=== PATIENT | male | born 1990 | race Caucasian/White ===

== ENCOUNTER → 2021-10-08 11:31 | Outpatient (CLI) | payer BC, SELFPAY ==
--- NOTE | ~2021-10-08 | XR_ITS ---
XR hand RT min 3V 10/08/2021 11:44 INDICATION: Right hand pain PROCEDURE: 3 views right hand COMPARISON: No prior studies for comparison. FINDINGS: Fracture, dislocation or subluxation is not identified. The soft tissues appear within norm al limits. No foreign bodies are identified. IMPRESSION: 1: NO ACUTE BONE OR JOINT ABNORMALITY IDENTIFIED. Reviewed, dictated and finalized at location [facility]
== END ==
PROVIDERS: PCP Family Medicine; Visit Provider Family Medicine
DX: M79.641 Pain in right hand (principal)
CPT/HCPCS: 73130

== ENCOUNTER 2023-03-25 08:15 | Outpatient (CLI) | payer BC, SELFPAY ==
--- NOTE | 2023-03-31 12:28 | WPDHOMESLEEP ---
Sleep Study - Home Unattended Date of Study: 03/25/23 Ordering Provider: Lorne Graves MD Interpreting Provider: Trisha Ribera MD Home Sleep Study Type: Watch PAT Height: 1.83 m Weight: 104.326 kg Body Mass Index: 31.1 Neck Circumference (inches): 16 [place]: 6 Reason for Sleep Study Loud snoring Sleep History Paulino Escalona is a 32-year-old man who has a long history of loud snoring. He has tried different beds, body positions, he has used Claritin,. He rarely awakens from sleep feeling short of breath. He frequently wakes at night with coughing. He constantly snores and frequently this is loud enough that others complain about it. He does not have difficulty sleeping with a cold. He does not wake up gasping for breath at night. He does not have breathing problems at night reported to him by others. He does not sweat excessively at night or notice his heart pounding or beating irregularly at night. He rarely falls asleep during the day, does not fall asleep involuntarily or while driving. He does not have loss of muscle tone with strong emotion. He does not have daytime difficulties due to excessive sleepiness. He works for [employer]. He does not feel paralyzed on waking or falling asleep. He does not have vivid dreamlike scenes on waking or falling asleep. He does not feel afraid to go to sleep. He rarely has nightmares. Does not remember his dreams. He constantly has racing thoughts. He does not feel sad or depressed. He frequently has anxiety. He does not have muscular tension. His frequently notices that he kicks at night. He does not have crawling or aching feelings in his legs. He does not have leg pain during the night. He does not have morning jaw pain. He does not grind his teeth during sleep. He occasionally is bothered by pain during the day. He is not awakened by pain at night. He does not wake up feeling stiff in the morning with sore achy muscles. He constantly wakes up with pain in the neck and spine. He has memory problems and concentration difficulties that are attributed to ADHD. He takes antacids at times. Normal bedtime is 8:30 p.m. falling asleep within 10-30 minutes waking 1-2 times to go to the bathroom. He is able to return to sleep in a few minutes. He wakes at 4:00 a.m.. His weekend schedule is similar, 8:30 p.m. bedtime and 5:00 a.m. wake up. He sometimes takes naps but if he does these are a short nap. He may feel refreshed after a 20 minute nap. He feels better in the morning compared to other times of day. Habits: Quit tobacco within the last year, smokes on occasion. Caffeine: 1 serving per day. Alcohol: 2 servings a day. No recreational substances. [facility] Past Medical History Medical History Abnormal fasting glucose (10/08/21) Glucose elevated at 104 on 10/08/2021. Glucose 110 with hemoglobin A1c 5.6 on 09/17/2022. glucose 108 with hemoglobin A1c 5.7 on 12/23/2022. Acute bronchitis Acute non-recurrent maxillary sinusitis ADHD (attention deficit hyperactivity disorder), inattentive type Arthritis rheumatoid factor less than 14, JOHN negative, uric acid 6.4 on 10/08/2021. BMI 29.0-29.9,adult BMI 30.0-30.9,adult BMI 31.0-31.9,adult Chronically elevated hemidiaphragm Elevated blood pressure reading in office without diagnosis of hypertension Essential (primary) hypertension Exposure to COVID-19 virus Hypersomnia Obesity (BMI 30.0-34.9) Overweight (BMI 25.0-29.9) Pain in right hand Family History Family History Grandparent Diabetes mellitus, Onset Age: 80 Family history of lung cancer Mother Patient's mother is in good health Family history unknown Father Patient's father is in good health Social History Social History (Updated 10/14/22 @ 08:11 by Marii Cobian MA) Smoking status: Never smoker Second hand tobacco smoke
[2023-03-31 12:37] VITALS: BMI 31.1
--- NOTE | 2023-11-12 10:13 | SLEEP ---
new calls [id number]
== END 2023-03-28 12:28 | disposition home or self-care (01) ==
PROVIDERS: PCP Family Medicine; Visit Provider Family Medicine
DX: G47.33 Obstructive sleep apnea (adult) (pediatric) (principal)
CPT/HCPCS: 95800

== ENCOUNTER 2023-04-28 20:00 | Outpatient (CLI) | payer BC, SELFPAY ==
--- NOTE | 2023-05-26 09:13 | WPDSLEEPSTUD ---
Sleep Study Date of Study: 04/21/23 Ordering Provider: Lorne Graves MD Interpreting Physician: Trihsa Ribera MD Sleep Study Type: CPAP Titration Height: 1.83 m Weight: 104.326 kg Body Mass Index: 31.1 Neck Circumference (inches): 16.5 [place]: 6 Reason for Sleep Study * Home sleep test using WatchPat March 25, 2023 showing moderate obstructive sleep apnea, AHI 22.4 with desaturation to 77% and snoring; 20.6 minutes below 88%, 6.7% the study.? Returns no for CPAP titration. Sleep History Paulino Escalona is a 32-year-old man who has a long history of loud snoring.? He has tried different beds, body positions, he has used Claritin,.? He rarely awakens from sleep feeling short of breath.? He frequently wakes at night with coughing.? He constantly snores and frequently this is loud enough that others complain about it.? He does not have difficulty sleeping with a cold.? He does not wake up gasping for breath at night.? He does not have breathing problems at night reported to him by others.? He does not sweat excessively at night or notice his heart pounding or beating irregularly at night.? He rarely falls asleep during the day, does not fall asleep involuntarily or while driving.? He does not have loss of muscle tone with strong emotion.? He does not have daytime difficulties due to excessive sleepiness.? He works for [employer].? He does not feel paralyzed on waking or falling asleep.? He does not have vivid dreamlike scenes on waking or falling asleep.? He does not feel afraid to go to sleep.? He rarely has nightmares.? Does not remember his dreams.? He constantly has racing thoughts.? He does not feel sad or depressed.? He frequently has anxiety.? He does not have muscular tension.? His frequently notices that he kicks at night.? He does not have crawling or aching feelings in his legs.? He does not have leg pain during the night.? He does not have morning jaw pain.? He does not grind his teeth during sleep.? He occasionally is bothered by pain during the day.? He is not awakened by pain at night.? He does not wake up feeling stiff in the morning with sore achy muscles.? He constantly wakes up with pain in the neck and spine.? He has memory problems and concentration difficulties that are attributed to ADHD.? He takes antacids at times. Normal bedtime is 8:30 p.m. falling asleep within 10-30 minutes waking 1-2 times to go to the bathroom.? He is able to return to sleep in a few minutes.? He wakes at 4:00 a.m..? His weekend schedule is similar, 8:30 p.m. bedtime and 5:00 a.m. wake up.? He sometimes takes naps but if he does these are a short nap.? He may feel refreshed after a 20 minute nap.? He feels better in the morning compared to other times of day. Habits: ? Quit tobacco within the last year, smokes on occasion.? Caffeine:? 1 serving per day.? Alcohol: 2 servings a day.? No recreational substances. [facility] Past Medical History Medical History Abnormal fasting glucose (10/08/21) Glucose elevated at 104 on 10/08/2021. Glucose 110 with hemoglobin A1c 5.6 on 09/17/2022. glucose 108 with hemoglobin A1c 5.7 on 12/23/2022. Acute bronchitis Acute non-recurrent maxillary sinusitis ADHD (attention deficit hyperactivity disorder), inattentive type Arthritis rheumatoid factor less than 14, JOHN negative, uric acid 6.4 on 10/08/2021. BMI 29.0-29.9,adult BMI 30.0-30.9,adult BMI 31.0-31.9,adult Chronically elevated hemidiaphragm Elevated blood pressure reading in office without diagnosis of hypertension Essential (primary) hypertension Exposure to COVID-19 virus GERD (gastroesophageal reflux disease) Hypersomnia Obesity (BMI 30.0-34.9) Overweight (BMI 25.0-29.9) Pain in right hand Seasonal allergic rhinitis Family History Family History Grandparent Diabetes mellitus, Onset Age: 80 Family history of lung cancer Mother P
[2023-05-26 09:37] VITALS: BMI 31.1
== END 2023-04-29 07:30 | disposition home or self-care (01) ==
PROVIDERS: PCP Family Medicine; Visit Provider Family Medicine
DX: G47.33 Obstructive sleep apnea (adult) (pediatric) (principal)
CPT/HCPCS: 95811

== ENCOUNTER 2023-12-23 11:00 | Outpatient (CLI) | payer BC, SELFPAY ==
[2023-12-23 11:34] LABS: Basophils Absolute Auto 0.1 K/mm3 (0.0-0.1); Basophils Percent Auto 0.8 % (0.2-1.2); Eosinophils Absolute Auto 0.4 K/mm3 (0-0.3); Eosinophils Percent Auto 4.3 % (0-4.4); Hematocrit 43.7 % (42.0-52.0); Hemoglobin 13.8 g/dL (14.0-18.0); Immature Granulocyte Absolute 0.04 K/mm3 (0.00-0.031); Immature Granulocyte Percent A 0.4 % (0-0.5); Lymphocytes Absolute Auto 2.08 K/mm3 (0.9-3.2); Lymphocytes Percent Auto 20.9 % (18.3-44.2); Mean Corpuscular HGB Conc 31.6 g/dl (32-36); Mean Corpuscular Hemoglobin 25.5 pg (26-34); Mean Corpuscular Volume 80.8 fl (80-100); Mean Platelet Volume 9.7 fl (7.4-10.4); Monocytes Absolute Auto 0.8 K/mm3 (0.1-0.6); Neutrophils Absolute Auto 6.5 K/mm3 (1.3-6.7); Neutrophils Percent Auto 65.6 % (45.5-73.1); Platelet Count Result 307 k/mm3 (150-375); Red Blood Count 5.41 M/mm3 (4.6-6.20); Red Cell Distribution Width 13.3 % (11.5-14.5)
[2023-12-23 11:50] LABS: Alanine Aminotransferase 44 U/L (6-50); Albumin Level 4.5 g/dL (3.5-5.1); Alkaline Phosphatase 67 U/L (38-126); Anion Gap 9 mmol/L (8-16); Aspartate Amino Transferase 32 U/L (17-59); Bilirubin,Total 0.7 mg/dL (0.2-1.3); Blood Urea Nitrogen 16 mg/dL (9-20); Calcium 9.3 mg/dL (8.4-10.2); Carbon Dioxide 26 mmol/L (22-30); Chloride 106 mmol/L (98-107); Estimated Glomerular Filt Rate > 60; Glucose 114 mg/dL (65-110); Potassium 3.9 mmol/L (3.4-5.0); Sodium 141 mmol/L (137-145)
== END 2023-12-23 11:01 | disposition home or self-care (01) ==
PROVIDERS: PCP Family Medicine; Visit Provider Internal Medicine Pulmonary Disease
DX: R06.02 Shortness of breath (principal)
CPT/HCPCS: 36415; 80053; 84443; 85025